=== PATIENT | female | born 1985 | race Caucasian/White ===

== ENCOUNTER 2018-04-10 11:28 | Day surgery (SDC) | payer OTHER ==
[~2018-04-10 11:28] MED LIST: CEFAZOLIN 1 GM INJ; SOD CHLORIDE 0.9% 1,000 ML IV
[2018-04-10] MEDS ORDERED: BUPIVACAINE 0.5%/EPI (SDV) 30 ML INJ (13:10)
[2018-04-10] MEDS ORDERED: ROPIVACAINE 0.5 % 30 ML VIAL (13:23)
[2018-04-10] MEDS ORDERED: ROCURONIUM 50 MG INJ ×2 (13:23→14:15)
[2018-04-10] MEDS ORDERED: SUCCINYLCHOLINE CHLORIDE 100 MG/5 ML SYG IV (13:23)
[2018-04-10] MEDS ORDERED: PROPOFOL 20 ML ×2 (13:23→14:15)
[2018-04-10] MEDS ORDERED: LIDOCAINE 2% (SDV) 5 ML INJ (13:23)
[2018-04-10] MEDS ORDERED: MIDAZOLAM 1 MG/ML 2 ML INJ (13:54)
[2018-04-10] MEDS ORDERED: FAMOTIDINE 20 MG INJ (14:17)
[2018-04-10] MEDS ORDERED: DEXAMETHASONE 4 MG/ML 5 ML INJ (14:17)
[2018-04-10] MEDS ORDERED: ONDANSETRON 4 MG INJ (14:17)
[2018-04-10] MEDS: CEFAZOLIN 2 GM/50 ML (PMX) 50 ML IVPB (14:18)
[2018-04-10] MEDS ORDERED: HYDROmorphONE 2 MG/ML SYG (14:36)
[2018-04-10] MEDS: BUPIVACAINE 0.5%/EPI (SDV) 30 ML INJ INJ ×2 (14:48)
[2018-04-10] MEDS ORDERED: MEPERIDINE 25 MG INJ IV (15:00)
[2018-04-10] MEDS ORDERED: PROCHLORPERAZINE 10 MG INJ IV (15:00)
[2018-04-10] MEDS ORDERED: OXYCODONE/ACETAMINOPHEN (5/325) TAB PO (15:00)
[2018-04-10] MEDS ORDERED: HYDROmorphONE 1 MG/5 ML IV SYRINGE IV (15:00)
[2018-04-10] MEDS ORDERED: DIPHENHYDRAMINE 50 MG INJ IV (15:00)
[2018-04-10] MEDS ORDERED: FENTAnyl 50 MCG/ML VIAL IV ×3 (15:00)
[2018-04-10] MEDS ORDERED: NEOSTIGMINE 3 MG/3 ML SYRINGE ×2 (15:14→15:23)
[2018-04-10] MEDS ORDERED: GLYCOPYRROLATE 0.4 MG INJ ×2 (15:14→15:23)
[2018-04-10] MEDS ORDERED: KETOROLAC 30 MG INJ (15:26)
[2018-04-10] MEDS ORDERED: morphine 2 MG INJ IV (15:30)
[2018-04-10] MEDS ORDERED: HYDROCODONE/APAP (5/325) TAB PO (15:30)
[2018-04-10] MEDS ORDERED: ONDANSETRON 4 MG INJ IV (15:30)
[2018-04-10] MEDS: HYDROmorphONE 1 MG/5 ML IV SYRINGE IV ×3 (15:40→15:58)
[2018-04-10] MEDS: ONDANSETRON 4 MG INJ IV (15:40)
[2018-04-10] MEDS ORDERED: morphine 4 MG/ML VIAL IV (16:00)
[2018-04-10] MEDS: HYDROCODONE/APAP (5/325) TAB PO (16:21)
== END 2018-04-10 18:50 | disposition home or self-care (01) ==
LOC: SDS 11:28
DX: K81.1 Chronic cholecystitis (principal); Z86.73 Personal history of transient ischemic attack (TIA), and cerebral infarction without residual deficits; E66.01 Morbid (severe) obesity due to excess calories; Z68.41 Body mass index [BMI] 40.0-44.9, adult
CPT/HCPCS: 47562; 88304